=== PATIENT | female | born 1980 | race Caucasian/White ===

== ENCOUNTER 2017-10-04 11:34 | Outpatient (CLI) | payer OTHER ==
[2017-10-04] MEDS: LACTATED RINGER'S 1,000 ML IV (12:18)
== END 2017-10-04 16:04 | disposition home or self-care (01) ==
LOC: OBT 11:34 → L-D 11:35 → OBT 16:04
DX: O41.03X0 Oligohydramnios, third trimester, not applicable or unspecified (principal); O09.523 Supervision of elderly multigravida, third trimester; Z3A.35 35 weeks gestation of pregnancy
CPT/HCPCS: 36415; 76816; 96360

== ENCOUNTER 2017-10-05 14:18 | Inpatient (IN) | payer OTHER ==
[2017-10-05] MEDS ORDERED: GLUCOSE GEL 15 GRAM TUBE PO ×2 (17:30)
[2017-10-05] MEDS ORDERED: DEXTROSE 50% 50 ML SYRINGE IV ×2 (17:30)
[2017-10-05] MEDS ORDERED: GLUCOSE GEL 15 GRAM TUBE BUCCAL (17:30)
[2017-10-05] MEDS ORDERED: GLUCAGON 1 MG INJ IM (17:30)
[2017-10-05] MEDS: LACTATED RINGER'S 1,000 ML IV ×2 (17:33→21:11)
[2017-10-05] MEDS: BETAMET NA PHOS/AC(6 MG/ML) 5ML INJ IM (17:35)
[2017-10-05] MEDS: ACCU-CHEK XX (20:45)
[2017-10-06] MEDS: LACTATED RINGER'S 1,000 ML IV ×3 (06:09→22:38)
[2017-10-06] MEDS: ACCU-CHEK XX (08:00)
[2017-10-06] MEDS: PRENATAL VITAMIN PO (09:15)
[2017-10-06] MEDS: BETAMET NA PHOS/AC(6 MG/ML) 5ML INJ IM (18:02)
[2017-10-06] MEDS: metFORMIN 500 MG TAB PO (21:13)
[2017-10-07] MEDS: LACTATED RINGER'S 1,000 ML IV ×3 (06:47→23:00)
[2017-10-07] MEDS ORDERED: metFORMIN 500 MG TAB PO (08:05)
[2017-10-07] MEDS: PRENATAL VITAMIN PO (08:21)
[2017-10-07] MEDS: metFORMIN 500 MG TAB PO ×2 (08:21→17:56)
[2017-10-07] MEDS: ACCU-CHEK XX ×10 (08:30→22:16)
[2017-10-08] MEDS: LACTATED RINGER'S 1,000 ML IV ×3 (00:05→18:12)
[2017-10-08] MEDS: ACCU-CHEK XX ×8 (07:30→21:15)
[2017-10-08 08:43] LABS: ADD MAN DIFF? NO
[2017-10-08 08:52] LABS: WHITE BLOOD COUNT 8.1 10^3/ul (4.8-10.8)
[2017-10-08 08:52] LABS: BASOPHILS % 0.1 % (0.0-2.0); HEMATOCRIT 33.2 % (37.0-47.0); HEMOGLOBIN 11.1 g/dl (12.0-16.0); LYMPHOCYTES # 1.9 10^3/ul (0.8-2.9); MEAN CORPUSCULAR HEMOGLOBIN 30.7 pg (29.0-33.0); MEAN CORPUSCULAR HGB CONC 33.4 g/dl (32.0-37.0); MEAN PLATELET VOLUME 10.7 fl (7.4-10.4); MONOCYTE # 0.8 10^3/ul (0.3-0.9); MONOCYTES % 10.3 % (0.0-11.0); NEUTROPHIL # 5.2 10^3/ul (1.6-7.5); NEUTROPHILS % 64.6 % (39.0-77.0); PLATELET COUNT 170 10^3/UL (140-415); RED BLOOD COUNT 3.61 10^6/ul (4.20-5.40); RED CELL DISTRIBUTION WIDTH 13.5 % (11.5-14.5)
[2017-10-08 09:05] LABS: ALANINE AMINOTRANSFERASE 90 IU/L (13-69); ALBUMIN 2.8 g/dl (3.3-4.9); ALBUMIN/GLOBULIN RATIO 1.12; ALKALINE PHOSPHATASE 95 IU/L (42-121); ANION GAP 13 (8-16); ASPARTATE AMINO TRANSFERASE 94 IU/L (15-46); BILIRUBIN,INDIRECT 0.1 mg/dl (0-1.1); BILIRUBIN,TOTAL 0.1 mg/dl (0.2-1.3); BLOOD UREA NITROGEN 11 mg/dl (7-20); CALCIUM 8.4 mg/dl (8.4-10.2); CARBON DIOXIDE 22 mmol/L (21-31); CHLORIDE 112 mmol/L (97-110); CREATININE 0.46 mg/dl (0.44-1.00); GLUCOSE 107 mg/dl (70-220); POTASSIUM 3.5 mmol/L (3.5-5.1); SODIUM 143 mmol/L (135-144); TOTAL PROTEIN 5.3 g/dl (6.1-8.1)
[2017-10-08 09:17] LABS: INR 0.98; PARTIAL THROMBOPLASTIN TIME 24.9 Sec (25.0-35.0); PROTIME 13.1 Sec (11.9-14.9)
[2017-10-08] MEDS: metFORMIN 500 MG TAB PO ×2 (09:30→18:12)
[2017-10-08] MEDS: PRENATAL VITAMIN PO (09:30)
[2017-10-09] MEDS: LACTATED RINGER'S 1,000 ML IV ×4 (02:06→21:24)
[2017-10-09] MEDS: PRENATAL VITAMIN PO (08:26)
[2017-10-09] MEDS: metFORMIN 500 MG TAB PO ×2 (08:26→17:44)
[2017-10-09] MEDS: ACCU-CHEK XX ×7 (08:26→20:28)
[2017-10-09] MEDS ORDERED: BUTORPHANOL 2 MG INJ IV ×2 (19:30)
[2017-10-09] MEDS ORDERED: LIDOCAINE 1% (MPF) 30 ML INJ INJ (19:30)
[2017-10-09] MEDS ORDERED: CARBOPROST 250 MCG INJ IM (19:30)
[2017-10-09] MEDS ORDERED: OXYTOCIN 30 UNITS/LR 500 ML IV ×2 (19:30→21:00)
[2017-10-09] MEDS ORDERED: MISOPROSTOL 200 MCG TAB PR (19:30)
[2017-10-09] MEDS ORDERED: METHYLERGONOVINE 0.2 MG INJ IM (19:30)
[2017-10-09] MEDS: AMPICILLIN 2 GM/NS (PMX) 100 ML IV (20:28)
[2017-10-09] MEDS ORDERED: FENTAnyl 2MCG/ML-ROPIV 0.2% 100 ML (21:29)
[2017-10-09] MEDS ORDERED: ONDANSETRON 4 MG INJ IV (22:00)
[2017-10-09] MEDS ORDERED: DIPHENHYDRAMINE 50 MG INJ IV (22:00)
[2017-10-09] MEDS ORDERED: NALOXONE (0.4 MG/ML) INJ IV (22:00)
[2017-10-09 23:12] LABS: ADD UMIC YES; UR ASCORBIC ACID NEGATIVE (NEGATIVE); UR BILIRUBIN (Dip) NEGATIVE (NEGATIVE); UR BLOOD (Dip) 1+ mg/dL (NEGATIVE); UR CLARITY CLEAR (CLEAR); UR COLOR STRAW (YELLOW); UR GLUCOSE (Dip) NEGATIVE (NEGATIVE); UR KETONES (Dip) 1+ mg/dL (NEGATIVE); UR LEUKOCYTE ESTERASE (Dip) NEGATIVE Leu/ul (NEGATIVE); UR NITRITE (Dip) NEGATIVE (NEGATIVE); UR RBC 3 /HPF (0-5); UR SPECIFIC GRAVITY (Dip) 1.009 (1.003-1.030); UR TOTAL PROTEIN (Dip) NEGATIVE (NEGATIVE); UR UROBILINOGEN (Dip) NEGATIVE (NEGATIVE); UR WBC 2 /HPF (0-5)
[2017-10-09] MEDS: LABETALOL 100 MG TAB PO (23:15)
[2017-10-09 23:18] LABS: ADD MAN DIFF? NO
[2017-10-09 23:21] LABS: BASOPHILS % 0.1 % (0.0-2.0); EOSINOPHILS % 0.1 % (0.0-7.0); HEMATOCRIT 37.6 % (37.0-47.0); HEMOGLOBIN 12.9 g/dl (12.0-16.0); LYMPHOCYTES # 1.4 10^3/ul (0.8-2.9); LYMPHOCYTES % 13.9 % (15.0-51.0); MEAN CORPUSCULAR HEMOGLOBIN 31.2 pg (29.0-33.0); MEAN CORPUSCULAR HGB CONC 34.3 g/dl (32.0-37.0); MEAN PLATELET VOLUME 10.3 fl (7.4-10.4); MONOCYTE # 0.7 10^3/ul (0.3-0.9); MONOCYTES % 7.2 % (0.0-11.0); NEUTROPHIL # 7.7 10^3/ul (1.6-7.5); PLATELET COUNT 165 10^3/UL (140-415); RED BLOOD COUNT 4.13 10^6/ul (4.20-5.40); RED CELL DISTRIBUTION WIDTH 12.9 % (11.5-14.5)
[2017-10-09 23:21] LABS: WHITE BLOOD COUNT 9.9 10^3/ul (4.8-10.8)
[2017-10-09 23:38] LABS: ALANINE AMINOTRANSFERASE 101 IU/L (13-69); ALBUMIN 3.4 g/dl (3.3-4.9); ALBUMIN/GLOBULIN RATIO 1.06; ALKALINE PHOSPHATASE 115 IU/L (42-121); ANION GAP 16 (8-16); ASPARTATE AMINO TRANSFERASE 55 IU/L (15-46); BILIRUBIN,INDIRECT 0.3 mg/dl (0-1.1); BILIRUBIN,TOTAL 0.3 mg/dl (0.2-1.3); BLOOD UREA NITROGEN 7 mg/dl (7-20); CALCIUM 8.8 mg/dl (8.4-10.2); CARBON DIOXIDE 21 mmol/L (21-31); CHLORIDE 107 mmol/L (97-110); CREATININE 0.45 mg/dl (0.44-1.00); GLUCOSE 95 mg/dl (70-220); POTASSIUM 3.4 mmol/L (3.5-5.1); SODIUM 141 mmol/L (135-144); TOTAL PROTEIN 6.6 g/dl (6.1-8.1); URIC ACID 6.5 mg/dl (3.1-7.9)
[2017-10-09 23:40] LABS: INR 1.03; PROTIME 13.6 Sec (11.9-14.9); PT RATIO 1.1
[2017-10-09 23:41] LABS: PARTIAL THROMBOPLASTIN TIME 26.2 Sec (25.0-35.0)
[2017-10-09] MEDS: AMPICILLIN 1 GM/NS (PMX) 50 ML IV (23:58)
[2017-10-10 00:09] LABS: HEPATITIS B SURFACE ANTIGEN NEGATIVE (NEGATIVE)
[2017-10-10] MEDS: ACCU-CHEK XX ×2 (00:20→04:11)
[2017-10-10] MEDS: LACTATED RINGER'S 1,000 ML IV ×2 (00:32→04:38)
[2017-10-10] MEDS: AMPICILLIN 1 GM/NS (PMX) 50 ML IV (03:40)
[2017-10-10] MEDS: FENTAnyl 2MCG/ML-ROPIV 0.2% 100 ML BAG EPI (04:22)
[2017-10-10] MEDS: OXYTOCIN 30 UNITS/LR 500 ML IV ×3 (05:10→10:08)
[2017-10-10] MEDS ORDERED: OXYTOCIN 30 UNITS/LR 500 ML IV ×5 (05:31→06:00)
[2017-10-10] MEDS ORDERED: CARBOPROST 250 MCG INJ IM (06:00)
[2017-10-10] MEDS ORDERED: METHYLERGONOVINE 0.2 MG INJ IM (06:00)
[2017-10-10] MEDS ORDERED: OXYCODONE/ASPIRIN (4.88/325) TAB PO (06:00)
[2017-10-10] MEDS ORDERED: MISOPROSTOL 200 MCG TAB PR (06:00)
[2017-10-10] MEDS: LABETALOL 100 MG TAB PO (08:41)
[2017-10-10] MEDS ORDERED: glyBURIDE 5 MG TAB PO (09:00)
[2017-10-10] MEDS: IBUPROFEN 600 MG TAB PO ×3 (12:51→19:00)
[2017-10-10] MEDS: LANOLIN 7 GM TUBE TOP (12:51)
[2017-10-10] MEDS: LACTATED RINGER'S 1,000 ML IV* ×3 (13:31→21:31)
[2017-10-10] MEDS: glyBURIDE 2.5 MG TAB PO (21:35)
[2017-10-10 22:05] LABS: RAPID PLASMA REAGIN NONREACTIVE (NR)
[2017-10-11] MEDS: IBUPROFEN 600 MG TAB PO ×5 (00:15→23:38)
[2017-10-11 08:46] LABS: ADD MAN DIFF? NO
[2017-10-11 09:01] LABS: WHITE BLOOD COUNT 8.5 10^3/ul (4.8-10.8)
[2017-10-11 09:01] LABS: BASOPHILS % 0.2 % (0.0-2.0); EOSINOPHILS # 0.1 10^3/ul (0.0-0.5); EOSINOPHILS % 0.6 % (0.0-7.0); HEMATOCRIT 31.2 % (37.0-47.0); HEMOGLOBIN 10.6 g/dl (12.0-16.0); LYMPHOCYTES # 1.9 10^3/ul (0.8-2.9); LYMPHOCYTES % 22.6 % (15.0-51.0); MEAN CORPUSCULAR HEMOGLOBIN 31.2 pg (29.0-33.0); MEAN CORPUSCULAR VOLUME 91.8 fl (82.0-101.0); MEAN PLATELET VOLUME 10.6 fl (7.4-10.4); MONOCYTE # 0.7 10^3/ul (0.3-0.9); NEUTROPHIL # 5.8 10^3/ul (1.6-7.5); NEUTROPHILS % 67.8 % (39.0-77.0); PLATELET COUNT 163 10^3/UL (140-415); RED CELL DISTRIBUTION WIDTH 13.2 % (11.5-14.5)
[2017-10-11] MEDS: glyBURIDE 2.5 MG TAB PO (09:29)
[2017-10-12] MEDS: IBUPROFEN 600 MG TAB PO ×2 (05:38→11:34)
[2017-10-12] MEDS: DIPHTH/TET/ACEL PERTUSS (ADULT) 0.5 ML VIAL IM* (09:00)
[2017-10-12] MEDS: INFLUENZA VIRUS VACCINE 0.5 ML (DISPENSING) IM* (12:46)
[2017-10-13] MEDS ORDERED: INFLUENZA VIRUS VACCINE 0.5 ML (DISPENSING) IM* (09:00)
== END 2017-10-12 15:30 | disposition home or self-care (01) | DRG 775 ==
LOC: OBT 14:18 → L-D 10-09 19:31 → PP1 10-10 10:41 → L-D 14:19 → PP1 10-10 10:52 → OBT 16:30 → PP1 16:30
PROVIDERS: Obstetrics & Gynecology
PROC: 10E0XZZ Delivery of Products of Conception, External Approach (ICD-10-PCS; principal; 2017-10-10)
PROC: 3E033VJ Introduction of Other Hormone into Peripheral Vein, Percutaneous Approach (ICD-10-PCS; 2017-10-10)
DX: O60.14X0 Preterm labor third trimester with preterm delivery third trimester, not applicable or unspecified (principal); O24.429 Gestational diabetes mellitus in childbirth, unspecified control; Z3A.36 36 weeks gestation of pregnancy; Z37.0 Single live birth
CPT/HCPCS: 62319; 76815; 76816; 76817; 76818; 80053; 81001; 82962; 84560; 85025; 85384; 85610; 85730; 86592; 86850; 86900; 86901; 87340; 90686; 99464